=== PATIENT | male | born 1970 | race African-American/Black ===

== ENCOUNTER 2018-09-17 13:02 | Emergency (ER) | payer MEDICAID ==
[~2018-09-17] VITALS: Ht 185.4 cm; Wt 69.0 kg
[2018-09-17] MEDS ORDERED: KETOROLAC 15MG/ML VIAL IM ONE (15:15)
[2018-09-17 15:20] VITALS: BP 125/78
== END 2018-09-17 15:29 | disposition home or self-care (01) ==
LOC: ER 13:02
DX: S39.012A Strain of muscle, fascia and tendon of lower back, initial encounter (principal); F17.210 Nicotine dependence, cigarettes, uncomplicated; X50.1XXA Overexertion from prolonged static or awkward postures, initial encounter; Y93.89 Activity, other specified; Y92.9 Unspecified place or not applicable
CPT/HCPCS: 96372; 99283; J1885

== ENCOUNTER 2021-09-04 09:50 | Emergency (ER) | payer MEDICAID ==
[~2021-09-04] VITALS: Ht 177.8 cm; Wt 80.0 kg
[2021-09-04] MEDS ORDERED: KETOROLAC 60MG/2ML VIAL IM ONE (10:15)
[2021-09-04 11:10] VITALS: BP 138/97
[2021-09-04] MEDS ORDERED: NAPR-681 MT (12:25)
== END 2021-09-04 12:41 | disposition home or self-care (01) ==
LOC: ER 09:50
DX: M79.651 Pain in right thigh (principal); Z87.828 Personal history of other (healed) physical injury and trauma
CPT/HCPCS: 73552; 96372; 99283; J1885